=== PATIENT | female | born 1950 | race Caucasian/White ===

== ENCOUNTER → 2023-12-31 16:37 | Outpatient (REF) | payer MEDICARE, OTHER, SELFPAY ==
[2023-12-31 17:13] LABS: % Basophils 0.5 % (0-2); % Immature Granulocytes 0.2 % (0-0.5); % Lymphocytes 34.8 % (20.5-51.1); % Monocytes 5.7 % (1.7-9.3); % Neutrophils 55.8 % (42.2-75.2); Absolute Basophils 0.1 10^3/uL (0-0.2); Absolute Eosinophils 0.3 10^3/uL (0-0.7); Absolute Lymphocytes 3.5 10^3/uL (1.2-3.4); Absolute Monocytes 0.6 10^3/uL (0.1-0.6); Absolute Neutrophils 5.7 10^3/uL (1.4-6.5); Hemoglobin 13.4 g/dL (12.0-16.0); Mean Corp Hgb Conc. 35.3 g/dL (33.0-37.0); Mean Corpuscular Hgb 30.3 pg (27.0-31.0); Nucleated Red Blood Cells % 0 %; Platelet Count 325 10^3/uL (130-400); Red Blood Cell Count 4.42 10^6/uL (4.20-5.40); Red Cell Dist. Width 12.7 % (11.5-14.5); White Blood Cell Count 10.2 10^3/uL (4.8-10.8)
[2023-12-31 18:06] LABS: Blood Urea Nitrogen 23 mg/dl (7-17); Calcium 9.8 mg/dl (8.4-10.2); Carbon Dioxide 24 mmol/L (22-30); Chloride 107 mmol/L (98-107); Glucose 90 mg/dl (70-99); Potassium 4.5 mmol/L (3.5-5.1); Sodium 138 mmol/L (135-145); eGFR > 60.00
== END ==
LOC: REG 16:37
PROVIDERS: ATTENDING PHYSICIAN Orthopaedic Surgery
DX: Z01.818 Encounter for other preprocedural examination (principal)
CPT/HCPCS: 36415; 80048; 85025

== ENCOUNTER → 2024-01-01 13:44 | Outpatient (REF) | payer MEDICARE, OTHER, SELFPAY | LOC: RCS 13:44 | PROVIDERS: ATTENDING PHYSICIAN Orthopaedic Surgery; FAMILY PHYSICIAN Family Medicine | DX: Z01.818 Encounter for other preprocedural examination (principal) | CPT/HCPCS: 93005 ==

== ENCOUNTER 2024-07-28 06:18 | Day surgery (SDC) | payer MEDICARE, OTHER, SELFPAY | END 2024-07-28 16:18 | disposition home or self-care (01) | LOC: GI 06:18 | PROVIDERS: ATTENDING PHYSICIAN Specialist | DX: Z12.11 Encounter for screening for malignant neoplasm of colon (principal); D12.3 Benign neoplasm of transverse colon; K63.5 Polyp of colon; K57.30 Diverticulosis of large intestine without perforation or abscess without bleeding; Q43.8 Other specified congenital malformations of intestine; K56.2 Volvulus; Z80.0 Family history of malignant neoplasm of digestive organs | CPT/HCPCS: 45385; 45380; 88305 ==

== ENCOUNTER 2024-10-15 19:28 | Emergency (ER) | payer MEDICARE, OTHER, SELFPAY ==
[2024-10-15 19:30] VITALS: BP 118/83
--- NOTE | 2024-10-15 20:29 | ED.GENMED ---
History of Present Illness
General
Chief Complaint: Musculo-Skeletal Complaint
Source: patient, spouse and family
Exam Limitations: none
Time Seen by Provider: 10/15/24 20:18
Nursing documentation reviewed up to this point in time: agreed with
History of Present Illness
History of Present Illness:
74-year-old female with history as noted presents to the ER for evaluation after fall. Patient lost her balance and fell while walking into a theater and hit her right shoulder on the ground. She said she had pain in her right shoulder after the
fall and felt mildly dizzy when she stood up but that since has resolved. She has soreness in the lateral right shoulder as well as some soreness in her lateral right thigh. She denies any headache or neck pain and did not hit her head. She
denies any back pain, rib pain, abdominal pain. She has been ambulatory since the fall. She is not on blood thinners for any reason.
Past History
Past History
ED Past Medical History: Other (MS)
ED Past Surgical History: None
Social History
Tobacco: Non-smoker
Living: with family
Employment: Retired
Review of Systems
Review of Systems
All Other Systems: ROS reviewed and negative except as documented in HPI and ROS
Constitutional: Denies fever or chills
Respiratory: Denies trouble breathing
Cardiac: Denies chest pain
ABD/GI: Denies abdominal pain or nausea
Musculoskeletal: Reports joint pain; Denies neck pain or back pain
Neurological: Denies dizzy or headache
Phy Exam
Physical Exam
Physical Exam:
General: Awake, alert, oriented x3; no acute distress
Head: Normocephalic, atraumatic
Eyes: Conjunctiva normal
Throat: Airway intact, handling secretions
Neck: Trachea midline, no cervical spine tenderness
Back: No signs of trauma the back or flank and no tenderness in the thoracic or lumbar spine
Lungs: Breathing comfortably no distress
Heart: Regular rate and rhythm, no murmurs, gallops, or rubs; no chest wall tenderness
Abd: Soft, non distended, nontender
Neuro: No gross deficits
Skin: no rash, no lacerations or abrasion
Extremities: Patient has some mild anterior humeral head tenderness and pain with flexion of the shoulder but is able to abduct, internally and externally rotate with minimal pain; she has some mild tenderness of the right lateral thigh but no
significant bruising or abrasions, full range of motion in right hip, knee without pain; rest of extremities are atraumatic, no edema in extremities, equal pulses in all extremities
Scores
Heart Failure Risk
Heart Failure Risk Score: Not Applicable
Heart Score for Chest Pain Patients
STEMI patient?: Not applicable
Withdrawal Assessment of Alcohol
Withdrawal Assessment Completed?: Not applicable
Course
Orders/Labs/Results
Orders:
Orders
10/15/24 19:33
Shoulder, Right 2 Views [CR Shoulder - Right Min 2 View] Urgent
Comment:
Reason For Exam: pain
10/15/24 20:29
Electrocardiogram (*1) Urgent
Reason for Study: Vertigo / Dizzy
EKG- Treatment ONCE
10/15/24 20:54
Complete Blood Count/With Diff Urgent
Comprehensive Metabolic Panel Urgent
10/15/24 22:00
Sling Right-Treatment ONCE
Abnormal Lab Results
10/15/24
20:54
WBC 12.1 H 10^3/uL
(4.8-10.8)
Abs Immat Gran (auto) 0.1 H 10^3/uL
(0-0.05)
Absolute Neuts (auto) 8.6 H 10^3/uL
(1.4-6.5)
BUN 21 H mg/dl
(7-17)
Glucose 122 H mg/dl
(70-99)
10/15/24 20:54
10/15/24 20:54
Vital Signs
Initial and Last Documented VS:
Initial Vital Signs
Temp Pulse Resp BP Pulse Ox
36.9 C 60 16 118/83 99
10/15/24 19:30 10/15/24 19:30 10/15/24 19:30 10/15/24 19:30 10/15/24 19:30
Last Documented Vital Signs
Temp Pulse Resp BP Pulse Ox
36.9 C 60 16 118/83 99
10/15/24 19:30 10/15/24 19:30 10/15/24 19:30 10/15/24 19:30 10/15/24 19:30
MDM/Problems Addressed
Differential Diagnosis Includes:
Shoulder pain: Fracture, dislocation, tendinitis, strain/sprain
MDM/Problems Addressed:
74-year-old female presents for evaluation after fall with right shoulder injury. No head trauma only other injury is some mild pain in the right lateral thigh where she landed but she has been ambulatory and has minimal tenderness. Vitals and
exam as above. She had an x-ray in triage reviewed by me shows no acute pathology. She did report some dizziness subsequent to injury suspect likely vagal response to shoulder pain�patient says has completely resolved and was transient, but
daughter says that she has a history of dehydration requesting we check blood work�will send CBC and CMP as well as EKG.
Labs reviewed: CBC and CMP no clinically significant abnormalities. Radiology report from x-ray reviewed she does have nondisplaced humeral head fracture. Will place in a sling. Referred to orthopedics for follow-up. Stable for discharge. All
questions answered.
*Radiology
Radiology exam reviewed: preliminary read by ED provider
*Pulse Oximetry
Patient hypoxic: no
*EKG
Interpreted by ED Provider?: Yes
Heart Rate: 68
Rate: normal
Rhythm: sinus
[place]: left axis deviation
Interval: normal interval
QRS Pattern: normal QRS
Ischemia: no ischemia
*Critical Care Note
Total Time (30-74mins, 75-104mins- exclusive of procedures): Not Applicable
Data Reviewed
Source: patient, spouse and family
ED Attending Note
-
Portions of this chart may have been created with voice recognition software.� Occasional wrong word or��sound alike� substitutions may have occurred due to the inherent limitations of voice recognition software.
Discharge Plan
Departure
Patient Disposition: Home (Routine Discharge)
Date of Disposition: 10/15/24
Time of Disposition: 22:16
Patient with high blood pressure during this ER visit?: No
Discharge Problem:
Fracture of right shoulder
Instructions: Shoulder or upper arm fracture
Referrals:
Gordon Sewell DO [Family Provider] - Follow up in 2-3 days
Isaias Alves MD [Active] - Call in 1-3 days for appt
Activity Restrictions/Additional Instructions:
Thank you for visiting the Emergency Department at [facility].
1. Please schedule a follow up appointment as directed. Call first thing tomorrow morning to make an appointment.
2. If indicated, please take your medications as instructed and indicated on discharge paperwork.
3. If any of your symptoms do not improve, or persist, or become more severe within 6-12 hours, please return to the emergency department for further care.
4. Please return to the emergency department if you develop a headache, neck pain/stiffness, fever greater than 100.4F, chest pain, shortness of breath, persistent nausea, vomiting, slurred speech, difficulty walking, numbness/tingling, weakness,
signs of infection or any other symptoms that are worrisome to you.
Please call [phone] if you have any questions.
Interventions
Interventions:
*Risk Screen - Suicide Last Done: 10/15/24 19:30
*General Assessment Last Done: 10/15/24 19:52
*Neglect/Abuse Screening Last Done: 10/15/24 19:30
*ED COVID-19 Vaccine History Last Done: 10/15/24 19:52
ED-Musculoskeletal Assessment Last Done: 10/15/24 19:52
Discharge Date and Time
Print Language: IRISH
[2024-10-15 21:15] LABS: % Basophils 0.4 % (0-2); % Eosinophils 1.3 % (0-6); % Immature Granulocytes 0.4 % (0-0.5); % Lymphocytes 22.2 % (20.5-51.1); % Neutrophils 70.7 % (42.2-75.2); Absolute Basophils 0.1 10^3/uL (0-0.2); Absolute Eosinophils 0.2 10^3/uL (0-0.7); Absolute Immature Granulocytes 0.1 10^3/uL (0-0.05); Absolute Lymphocytes 2.7 10^3/uL (1.2-3.4); Absolute Monocytes 0.6 10^3/uL (0.1-0.6); Absolute Neutrophils 8.6 10^3/uL (1.4-6.5); Hematocrit 39.5 % (37.0-47.0); Hemoglobin 13.7 g/dL (12.0-16.0); Mean Corp Hgb Conc. 34.7 g/dL (33.0-37.0); Mean Corpuscular Hgb 29.7 pg (27.0-31.0); Mean Corpuscular Volume 85.7 fL (81.0-99.0); Mean Platelet Volume 8.7 fL (7.4-10.4); Nucleated Red Blood Cells % 0 %; Platelet Count 284 10^3/uL (130-400); Red Blood Cell Count 4.61 10^6/uL (4.20-5.40); Red Cell Dist. Width 12.8 % (11.5-14.5); White Blood Cell Count 12.1 10^3/uL (4.8-10.8)
[2024-10-15 21:26] LABS: ALT (SGPT) 31 U/L (0-35); AST (SGOT) 32 U/L (14-36); Albumin 4.4 g/dl (3.5-5.0); Alkaline Phosphatase 66 U/L (38-126); Blood Urea Nitrogen 21 mg/dl (7-17); Calcium 9.9 mg/dl (8.4-10.2); Carbon Dioxide 28 mmol/L (22-30); Chloride 102 mmol/L (98-107); Glucose 122 mg/dl (70-99); Potassium 4.3 mmol/L (3.5-5.1); Sodium 138 mmol/L (135-145); Total Bilirubin 0.5 mg/dl (0.2-1.3); Total Protein 6.4 g/dl (6.3-8.2); eGFR > 60.00
== END 2024-10-15 22:37 | disposition home or self-care (01) ==
LOC: EMR 19:28
PROVIDERS: EMERGENCY PHYSICIAN Emergency Medicine; FAMILY PHYSICIAN Family Medicine
DX: S42.254A Nondisplaced fracture of greater tuberosity of right humerus, initial encounter for closed fracture (principal); W18.39XA Other fall on same level, initial encounter; R42 Dizziness and giddiness; G35 Multiple sclerosis
CPT/HCPCS: 99284; 73030; 80053; 85025; 93005

== ENCOUNTER → 2024-11-05 14:45 | Outpatient (REF) | payer MEDICARE, OTHER, SELFPAY | LOC: HWRAD 14:45 | PROVIDERS: ATTENDING PHYSICIAN Nurse Practitioner Family | DX: Z13.820 Encounter for screening for osteoporosis (principal); Z78.0 Asymptomatic menopausal state | CPT/HCPCS: 77080 ==